=== PATIENT | female | born 1950 | race Caucasian/White ===

== ENCOUNTER 2018-06-10 08:00 | Outpatient (CLI) | payer MEDICARE | END 2018-06-10 09:00 | disposition home or self-care (01) | LOC: D.MAMMO 08:00 | DX: Z12.31 Encounter for screening mammogram for malignant neoplasm of breast (principal) ==

== ENCOUNTER → 2018-07-16 18:31 | Outpatient (CLI) | payer MEDICARE | END | disposition home or self-care (01) | LOC: D.MAMMO 14:30 | DX: R92.8 Other abnormal and inconclusive findings on diagnostic imaging of breast (principal) ==

== ENCOUNTER → 2019-09-22 08:58 | Outpatient (CLI) | payer MEDICARE ==
--- NOTE | ~2019-09-22 | ST ---
PATIENT:JOSE RAMON LUNSFORD MEDICAL RECORD: [id number] SEX: F LOCATION:[facility] ORDER #: ADMISSION DATE: 09/22/19 AGE OF PATIENT: 68 REFERRING PHYSICIAN: INTERPRETING PHYSICIAN: MARYLIN REIS MD DATE OF SERVICE: 09/22/2019 INDICATION: Angina, abnormal ECG. She was exercised on standard Lexiscan protocol with 33 mCi of sestamibi injected at peak stress, 11 mCi used previously for rest images. FINDINGS: Gated SPECT reveals a decreased ejection fraction at 47% with good wall motion and thickening and brightening throughout all segments. SPECT imaging Cardiolite was used as myocardial perfusion agent. There is reversibility inferiorly and apically. This includes the basal, mid, apical inferior segments as well as the apex itself. The degree of reversibility is moderate. The amount of myocardium involved is moderate. OVERALL IMPRESSION: This is an intermediate risk abnormal nuclear stress test, reversibility throughout the inferior and apical segment suggestive of hemodynamically significant coronary artery disease. TRANSINT:[id number] Voice Confirmation ID: [id number] DOCUMENT ID: [id number] MARYLIN REIS MD CC: LYNDSAY EDMONDS MD [id number] DICTATION DATE: 09/23/19 1150 CASUALTY INSURANCE CLAIM ADJUSTER: 09/24/19 0018 DEP CLI 09/22/19 [facility] [address] [id number]
--- NOTE | ~2019-09-22 | EC ---
PATIENT:JOSE RAMON LUNSFORD DATE OF SERVICE: 09/22/19 SEX: F MEDICAL RECORD: [id number] DATE OF : 50 LOCATION:[facility] AGE OF PATIENT: 68 ADMISSION DATE: 09/22/19 REFERRING PHYSICIAN: INTERPRETING PHYSICIAN: MICHAEL POLO MD ECHOCARDIOGRAM REPORT ECHO CHARGES 4 ECHO COMPLETE Date: 09/22/19 CLINICAL DIAGNOSIS: CP/ANGINA/ABNORMAL EKG/MURMUR ECHOCARDIOGRAPHIC MEASUREMENTS (adult normal given) AC root (d.<3.7cm) 3.0 cm LV Septum d (<1.2 cm> 1.1 cm Valve Excursion 2.0 cm LV Septum (systole) 1.5 cm Left Atria (s.<4.0cm> 5.1 cm LVPW d(<1.2cm) 1.2 cm RV (d.<2.3cm) 2.8 cm LVPW (sytole) 1.7 cm LV diastole(<5.6CM) 5.4 cm MV E-F(>70mm/sec) cm LV systole 4.0 cm LVOT Diameter 2.0 cm MV exc.(>10mm) cm Est.ejection fraction (50-75%) % DOPPLER: LVIT cm/sec A 100 cm/sec E 81.0 cm/sec LA cm/sec RVSP 34.3 mmHg LVOT 77.0 cm/sec AOP1/2T m/s Asc. Ao 122 cm/sec RVOT 55.0 cm/sec RA cm/sec PA 82.0 cm/sec AV Gradient Peak 6.0 mmHg AV Mean 3.1 mmHg AV Area 2.1 cm MV Gradient Peak 5.0 mmHg MV Mean 2.0 mmHg MV Area cm COMMENTS: OP - HC Rn Long Term Care: 1 TIM [facility] Pressroom Supervisor: 2 Dr. Brooks TAPE# PACS Pericardial Effusion N DATE OF SERVICE: Adequate 2D, color flow imaging, spectral Doppler, and M-Mode. Borderline LVH. LV internal dimensions are normal. LV is globally diffusely hypokinetic with reduced EF, estimated EF 30% to 35%. Aortic valve sclerosed without evidence of stenosis by Doppler interrogation. Left atrium is dilated at 5.1 cm. Mitral valve shows no prolapse. Moderate MR. Right-sided chambers are grossly normal. Mild TR. ECHOCARDIOGRAM REPORT [id number] JOSE RAMON LUNSFORD TRANSINT:[id number] Voice Confirmation ID: [id number] DOCUMENT ID: [id number] MICHAEL POLO MD CC: [id number] DICTATION DATE: 09/22/191410 FENCE MAKING MACHINE OPERATOR: 09/22/19 2229 [facility] [address] [id number]
== END | disposition home or self-care (01) ==
LOC: D.HCCECHO 08:58
PROVIDERS: ATTEND Internal Medicine Interventional Cardiology
DX: R01.1 Cardiac murmur, unspecified (principal)

== ENCOUNTER 2019-10-07 06:59 | Outpatient (CLI) | payer MEDICARE ==
[~2019-10-07] VITALS: Ht 165.1 cm; Wt 79.5 kg
--- NOTE | ~2019-10-07 | HEMODYNAMI ---
PATIENT:JOSE RAMON LUNSFORD MEDICAL RECORD: [id number] : 50 LOCATION:[facility] ADMISSION DATE: 10/07/19 Generatedon:10/07/201910:16 Patient name: JOSE RAMON LUNSFORD Patient #: [id number] SSN: : 1950 Date of study: 10/07/2019 Page: Of Hemodynamic Procedure Report Patient Data Patient Demographics Procedure consent was obtained First Name: JOSE RAMON Gender: Female Last Name: ISATU : 1950 Patient #: [id number] Age: 68 year(s) Race: Unknown Additional ID: [id number] Contact details Address: [address] [place] [address] State: [place] City: [facility] Zip code: [address] Past Medical History Allergies: No known allergies Admission Admission Data Admission Date: 10/07/2019 Admission Time: 6:59 Lab Results Lab Result Date: 10/07/2019 Lab Result Time: 0:00 Biochemistry Name Units Result Min Max BUN mg/dl 16 --(---*)-- 7 18 Creatinine mg/dl 0.7 --(*---)-- 0.6 1.3 eGFR ml/min 88.32743 -*(----)-- 90 120 NONAFRICAN CBC Name Units Result Min Max Hematocrit % 42.2 --(*---)-- 42 54 Hemoglobin g/dl 13.6 --(*---)-- 13.5 17.5 Procedure Procedure Types Cath Procedure Diagnostic Procedure LHC LHC w/Coronaries Sedation Charges Moderate Sedation up to 15 minutes Procedure Description Procedure Date Procedure Date: 10/07/2019 Procedure Start Time: 10:02 Procedure End Time: 10:13 Procedure Staff Name Function Jose Stanford MD Performing Physician Bailey Marquez RT Scrub Ly Calderon RN Nurse Birdie Roth RT Monitor Magdalena Hare RT Personal Development Educator Procedure Data Cath Procedure Fluoroscopy Diagnostic fluoroscopy Total fluoroscopy Time: 1.7 time: 1.7 min min Diagnostic fluoroscopy Total fluoroscopy dose: 291 dose: 291 mGy mGy Contrast Material Contrast Material Type Amount (ml) Isovue 300 69 Entry Location Entry Primary Successful Side Size Upsize Upsize Entry Closure Florentino ccessful Closure Location (Fr) 1 (Fr) 2 (Fr) Remarks Device Remarks Radial Right 6 Fr Mechanical artery Short Compression Estimated blood loss: 5 ml Diagnostic catheters Device Type Used For End Catheter Placement DIAGNOSTIC Hawkins 110cm 5 Procedure Fr catheter ([id number]) DIAGNOSTIC Pigtail 5Fr Procedure catheter ([id number]) Procedure Complications No complications Procedure Medications Medication Administration Route Dosage 0.9% NaCl I.V. 100 ml/hr Oxygen etCO2 Nasal cannula 2 l/min Lidocaine 2% added to field 20 Heparin Flush Bag added to field 2 bags (1000units/500ml NS) Radial Cocktail added to field 1 syringe (Verapamil 2mg/Nitro 400mcg/Heparin 1500units) Versed I.V. 2 mg Fentanyl I.V. 50 mcg Versed I.V. 2 mg Fentanyl I.V. 50 mcg Hemodynamics Rest HGB: 13.6 (g/dl) Heart Rate: 71 (bpm) Pressure Samples Time Site Value (mmHg) Purpose Heart Use Rate(bpm) 10:03 LV 70/8,38 Snapshot 91 Gradients Valve Time Site Site Mean SEP/DFP Peak To Heart Use 1 2 (mmHg) (sec/min) Peak Rate (mmHg) (bpm) Aortic 10:04 LV AO 51 Snapshots Pre Cath Intra NCS Post Cath Vital Signs Time Heart Resp SPO2 etCO2 NIBP (mmHg) Rhythm Pain Sedation Rate (ipm) (%) (mmHg) Status Level (bpm) 9:43:04 84 16 97 22 129/92(118) NSR 0 (11) 10(A) , No pain 9:47:21 85 15 100 25.6 129/84(112) NSR 0 (11) 10(A) , No pain 9:51:36 81 20 95 28.6 118/79(99) NSR 0 (11) 10(A) , No pain 9:55:49 76 12 97 41.5 115/74(100) NSR 0 (11) 10(A) , No pain 9:59:58 88 15 96 32.8 115/76(98) NSR 0 (11) 10(A) , No pain 10:04:20 84 16 96 31 111/45(87) NSR 0 (11) 10(A) , No pain 10:08:35 88 17 96 43.7 110/61(88) NSR 0 (11) 10(A) , No pain 10:12:51 98 44.5 113/67(84) NSR 0 (11) 10(A) , No pain Medications Time Medication Route Dose Verified Delivered Reason Notes E ffectiveness by by 9:46:43 0.9% NaCl I.V. 100 Jose Ly used for ml/hr Hien K[facility] procedure MD RAMIREZ 9:46:51 Oxygen etCO2 2 l/min Jose Ly used for Nasal [facility] procedure cannula MD RAMIREZ 9:46:56 Lidocaine 2% added 20ml Jose Garcia for local to vial [facility] anesthetic field MD MACARIO 9:47:00 Heparin Flush added 2 bags Jose Garcia used for Bag to [facility] procedure (1000units/500ml field MD MACARIO NS) 9:47:28 Radial Cocktail added 1 Jose Jose used for ([facility] field MD MACARIO 400mcg/Heparin 1500units) 9:59:08 Versed I.V. 2 mg Jose Ly for [facility] Calderon sedation MD RAMIREZ 9:59:13 Fentanyl I.V. 50 mcg Jose Ly for [facility] Calderon sedation MD RAMIREZ 10:07:04 Versed I.V. 2 mg Jose Ly for [facility] Calderon sedation MD RAMIREZ 10:07:08 Fentanyl I.V. 50 mcg Jose Ly for [facility] Calderon sedation MD RAMIREZmedical equipment repairer Log Time Note 8:23:11 Informed consent obtained and on chart 8:28:29 Procedure Status Elective Heart Cath (OP). 8:28:31 Time tracking: Regular hours (M-F 7:00 - 5:00) 8:28:33 Plan of Care:Hemodynamics will remain stable., Cardiac rhythm will remain stable., Comfort level will be maintained., Respiratory function will remain adequate., Patient/ family verbilizes understanding of procedure., Procedure tolerated without complication., Recovers from procedure without complications.. 8:42:07 H&P Date Dictated: 09/10/2019 Within 30 days and on chart., H&P Addendum completed by physician on day of procedure. (MUST COMPLETE FOR ALL OUTPATIENTS). 8:42:36 Patient allergic to No known allergies 8:43:35 Lab Result : BUN 16 mg/dl 8:43:35 Lab Result : Creatinine 0.7 mg/dl 8:43:35 Lab Result : eGFR NONAFRICAN 88.92659 ml/min 8:43:35 Lab Result : Hemoglobin 13.6 g/dl 8:43:35 Lab Result : Hematocrit 42.2 % 8:45:24 Risk of Mortality: .1 8:45:26 Risk of blood transfusion: .3 8:45:28 Risk of SACHA: .2 9:25:18 Magdalena Hare RT(R) sent for patient. Start room use. 9:34:30 Patient received from Pre/Post Procedure Room to CCL 1 Alert and oriented. Tansferred to table in Supine position. 9:34:32 Warm blankets applied, and fallon hugger turned on for patient comfort. 9:34:33 Correct patient and procedure confirmed by team. 9:34:35 ECG and BP/O2 sat monitors applied to patient. 9:41:59 Vital chart was started 9:42:18 Full Disclosure recording started 9:42:24 Rhythm: sinus rhythm 9:42:27 Baseline sample Acquired. 9:42:42 Pre-procedure instructions explained to patient. 9:42:45 Pre-op teaching completed and patient verbalized understanding. 9:42:48 Family AVAILABLE WITH PHONE CALL 9:43:06 Patient NPO since Midnight. 9:44:29 Is the patient allergic to Iodine/contrast media? No. 9:44:46 Is patient on blood thinner?No 9:44:49 Patient diabetic? No. 9:46:17 Previous problem with sedation/anesthesia? No ? 9:46:21 Snore? Yes 9:46:22 Sleep apnea? No 9:46:23 Deviated septum? No 9:46:28 Opens mouth fully? No 9:46:28 Sticks out tongue? Yes 9:46:30 Airway obstruction? No ? 9:46:33 Dentures? No ? 9:46:37 Pre procedure: right dorsailis pedis pulse 1+ Palpable, but thready & weak; easily obliterated 9:46:39 Modified Blaine's test Ulnar < 7 seconds 9:46:40 Patient pain scale 0/10 ?. 9:46:43 0.9% NaCl 100 ml/hr I.V. was administered by Ly Calderon RN; used for procedure; Verbal order read back and verified. 9:46:51 Oxygen 2 l/min etCO2 Nasal cannula was administered by Ly Calderon RN; used for procedure; Verbal order read back and verified. 9:46:56 Lidocaine 2% 20ml vial added to field was administered by Jose Stanford MD; for local anesthetic; Verbal order read back and verified. 9:47:00 Heparin Flush Bag (1000units/500ml NS) 2 bags added to field was administered by Jose Stanford MD; used for procedure; Verbal order read back and verified. 9:47:05 IV patent on arrival in right antecubital with 0.9% NaCl at O. 9:47:13 Lab results completed and on chart. 9:47:22 Right Radial & Right Groin area was prepped with chlora-prep and draped in sterile fashion 9:47:28 Radial Cocktail (Verapamil 2mg/Nitro 400mcg/Heparin 1500units) 1 syringe added to field was administered by Jose Stanford MD; used for procedure; Verbal order read back and verified. 9:47:34 Alarms reviewed by R. N. 9:47:55 Sharps counted by scrub and verified by R.N. 9:47:59 Use device set Radial Dx or PCI 9:48:01 ACIST Syringe (85874) opened to sterile field. 9:48:02 Medline Cath Pack ([id number]) opened to sterile field. 9:48:02 Bag Decanter () opened to sterile field. 9:48:03 ACIST Hand Control (02985) opened to sterile field. 9:48:03 ACIST Manifold (10218) opened to sterile field. 9:48:03 Tegaderm 4 x 4 (1626W) opened to sterile field. 9:48:05 MBrace Wrist Support ([id number]) opened to sterile field. 9:48:10 EMERALD Guide Wire (809-115) opened to sterile field. 9:48:11 SHEATH 6FR RAIN (3511190) opened to sterile field. 9:58:09 --------ALL STOP TIME OUT------ 9:58:09 Final Timeout: patient, procedure, and site verified with staff and physician. All members of the team are in agreement. 9:58:24 Right Radial & Right Groin site verified by team. 9:58:35 Fire Safety Assessment: A--An alcohol-based skin anteseptic being used preoperatively., C--Open oxygen or nitrous oxide is being used., D--An ESU, laser, or fiber-optic light is being used. 9:58:38 Physical assessment completed. ASA score P 2 - A patient with mild systemic disease as per Jose Stanford MD. 9:59:08 Versed 2 mg I.V. was administered by Ly Calderon RN; for sedation; Verbal order read back and verified. 9:59:13 Fentanyl 50 mcg I.V. was administered by Ly Calderon RN; for sedation; Verbal order read back and verified. 9:59:38 2) 60-89 Mildly reduced kidney function, and other findings (as for stage 1) point to kidney disease. 9:59:42 Maximum allowable contrast dose (3.7 X eGFR X 0.75)244 ml. 9:59:45 Sedation plan: IV Moderate Sedation Medication:Versed, Fentanyl 9:59:51 Zero performed for pressure channel P1 10:00:30 Procedure started. 10:02:02 Local anesthetic to right radial artery with Lidocaine 2% by Jose Stanford MD.INITIAL ACCESS ONLY 10:03:14 A 6 Fr Short sheath was inserted into the Right Radial artery 10:03:24 A DIAGNOSTIC Hawkins 110cm 5 Fr catheter (113284) was advanced over the wire and used for Procedure. 10:03:41 LV gram done using VO 10:03:53 LV hemodynamics recorded. 10:03:57 Injector settings: Ml/sec: 5, Volume: 15, 10:04:23 EF : 40 % 10:05:12 LCA angiography performed. 10:06:04 RCA angiography performed. 10:06:39 Catheter exchanged over wire. 10:06:53 A DIAGNOSTIC Pigtail 5Fr catheter ([id number]) was advanced over the wire and used for Procedure. 10:07:04 Versed 2 mg I.V. was administered by Ly Calderon RN; for sedation; Verbal order read back and verified. 10:07:08 Fentanyl 50 mcg I.V. was administered by Ly Calderon RN; for sedation; Verbal order read back and verified. 10:08:22 Injector settings: Ml/sec: 10, Volume: 20, 10:08:49 EF : 30 % 10:08:50 Catheter removed. 10:09:08 ZEPHYR REGULAR TR BAND (640139) opened to sterile field. 10:09:11 Procedure ended.(Physican Out) 10:10:35 Sheath removed intact; hemostasis achieved with Mechanical Compression to the Right Radial artery. 10:10:47 Fluoroscopy time 01.70 minutes. 10:10:53 Fluoroscopy dose: 291 mGy 10:10:53 Flurop Dose total: 291 10::08 Dose Area Product 10637 mGy/cm. 10:11:35 Contrast amount:Isovue 300 69ml. 10:11:37 Maximum allowable dose exceeded? No. 10:11:38 Sharps counted by scrub and verified by R.N. 10:11:42 Hammond band inflated with 10cc of air. 10:11:44 Insertion/operative site no bleeding no hematoma. 10:11:48 Post-procedure physical assessment completed. ASA score P 2 - A patient with mild systemic disease as per Jose Stanford MD. 10:11:53 Post procedure rhythm: sinus rhythm 10:11:58 Estimated blood loss: 5 ml 10:12:00 Post procedure instruction explained to patient.Patient verbalizes understanding. 10:12:00 Patient needs reinforcement of post procedure teaching. 10:13:08 Procedure type changed to Cath procedure, Diagnostic procedure, LHC, [facility] w/Coronaries, Sedation Charges, Moderate Sedation up to 15 minutes 10:13:37 Procedure and supply charges have been captured, reviewed, submitted and are correct. 10:13:46 Procedure Complication : No complications 10:13:47 Vital chart was stopped 10:13:49 [facility] Findings: mild to moderate CAD (<70%) 10:13:51 Operative report dictated upon procedure completion. 10:13:51 See physician's report for complete and final results. 10:13:53 Report given to Pre/Post Procedure Room. 10:13:56 Patient transfered to Pre/Post Procedure Room with Bed. 10:13:58 Procedure ended. 10:13:58 Full Disclosure recording stopped 10:14:13 End room use (Document Last) Device Usage Item Name Manufacture Quantity Catalog Hospital Part Current Minima l Lot# / Number Charge Number Stock Stock Serial# Code ACIST Acist 1 99184 [id number] [id number] 20 Syringe Medical (17120) Systems Inc Medline Medline 1 [id number] 923692 95842 840476 5 Cath Pack ([id number]) Bag Microtek 1 2001S 099787 69087 271143 5 Decanter Medical Inc. (2001S) ACIST Hand Acist 1 78736 029073 602941 130609 5 Control Medical (64860) Systems Inc ACIST Acist 1 65700 784881 616407 782079 5 Manifold Medical (44526) Systems Inc Tegaderm 4 3M 1 1626W 353728 749057 153738 5 x 4 (1626W) MBrace Advanced 1 140-0250-00 776303 83225 300090 5 Wrist Vascular Support Dynamics (108138249) EMERALD Cardinal 1 502-455 894388 992067 976016 5 Guide Wire Health (502455) SHEATH 6FR Cardinal 1 8235908 621991 0325164 228412 5 [facility] (4934252) DIAGNOSTIC Terumo 1 405013 892385 151882 063527 5 Hawkins 110cm 5 Fr catheter (622116) DIAGNOSTIC Cardinal 1 483601V 374947 952504 107561 5 Pigtail 5Fr Health catheter (857456P) ZEPHYR Cardinal 1 749994 944479 6895351 564028 5 REGULAR TR Health BAND (527028) Signature Audit [place] Stage Time Signature Unsigned Intra-Procedure 10/07/2019 Birdie Roth 10:15:55 AM RT(R) Intra-Procedure 10/07/2019 Ly Calderon 10:16:24 AM RN Intra-Procedure 10/07/2019 Jose Whyte 10:16:42 AM Abner MACARIO [facility] [address] [place] [address]
[2019-10-07] MEDS ORDERED: SYNTHROID25 MCG PO (07:26)
[2019-10-07] MEDS ORDERED: BAYER CHEWABLE81 MG PO (07:26)
[2019-10-07] MEDS ORDERED: CLARITIN 10 MG10 MG PO (07:26)
[2019-10-07 07:45] VITALS: BP 133/88; Ht 165.1 cm; Wt 79.5 kg
[2019-10-07 07:58] LABS: BASOPHILS 0.7 % (0-2); EOSINOPHILS 1.1 % (0-7); HEMATOCRIT 42.2 % (36.0-48.0); HEMOGLOBIN 13.6 g/dL (12-16); IMMATURE GRANULOCYTES 0.2 % (0-5); LYMPHOCYTES 26.6 % (15-50); MCH 31.4 pg (26.0-34.0); MCHC 32.2 g/dL (31.0-37.0); MCV 97.5 fL (80.0-100.0); MEAN PLATELET VOLUME 10.7 fL (7.4-10.4); MONOCYTES 7.6 % (2-11); NEUTROPHILS 63.8 % (40-80); PLATELET COUNT 253 10x3/uL (130-400); RBC 4.33 10x6/uL (4.00-5.40); RDW 12.2 % (11.5-14.5); WBC 8.2 10x3/uL (4.8-10.8)
[2019-10-07 08:12] LABS: ALT (SGPT) 21 U/L (10-68); CALC OSMOLALITY 281 mosm/kg (275-300); CALCIUM 8.8 mg/dL (8.5-10.1); CARBON DIOXIDE 27.2 mmol/L (21.0-32.0); CHLORIDE - SERUM 106 mmol/L (98-107); CHOL - HDL RATIO 2.6 ratio (2.3-4.1); CHOLESTEROL, TOTAL 216 mg/dL (0-200); CREATININE - SERUM 0.7 mg/dL (0.6-1.3); GLUCOSE 94 mg/dL (74-106); HDL CHOLESTEROL 84 mg/dL (32-96); LDL CHOLESTEROL 122 mg/dL (0-100); LDL-HDL RATIO 1.5 ratio (1.5-3.5); POTASSIUM - SERUM 4.3 mmol/L (3.5-5.1); SODIUM 141 mmol/L (136-145); TRIGLYCERIDE 54 mg/dL (30-200); UREA NITROGEN 16 mg/dL (7-18); eGFR NON AFRICAN AMERICAN 88 mL/min (90-120)
--- NOTE | 2019-10-07 10:20 | NUR ---
PT ARRIVED BY STRETCHER. PLACED ON MONITORS. ASSESSMENT COMPLETED. VSS AT THIS TIME.
[2019-10-07] MEDS ORDERED: ALDACTONE25 MG PO (10:26)
--- NOTE | 2019-10-07 10:35 | NUR ---
RIGHT WRIST Z BAND IN PLACE. NO BLEEDING/HEMATOMA NOTED. CALL LIGHT WITHIN REACH. PT RESTING COMFORTABLY. VSS.
--- NOTE | 2019-10-07 11:05 | NUR ---
PT RESTING COMFORTABLY. VSS. RIGHT WRIST Z BAND IN PLACE. NO BLEEDING/HEMATOMA NOTED.
--- NOTE | 2019-10-07 11:15 | NUR ---
1cc OF AIR REMOVED FROM Z BAND. NO BLEEDING/HEMATOMA NOTED. VSS. PT SET UP WITH SANDWICH TRAY AND DRINK AT THIS TIME. VSS.
--- NOTE | 2019-10-07 11:30 | NUR ---
2cc OF AIR REMOVED FROM Z BAND. NO BLEEDING/HEMATOMA NOTED. CALL LIGHT WITHIN REACH. VSS. NO NEEDS AT THIS TIME.
--- NOTE | 2019-10-07 11:45 | NUR ---
4cc OF AIR REMOVED FROM Z BAND. NO BLEEDING/HEMATOMA NOTED. VSS. PT TOLERATING WELL. DENIES NAUSEA/PAIN AT THIS TIME.
--- NOTE | 2019-10-07 12:05 | NUR ---
PIV D/C'D WITH CATH TIP INTACT. TOLERATED WELL. VSS. RIGHT WRIST Z BAND REMOVED AND DRESSING APPLIED. NO BLEEDING/HEMATOMA NOTED. PT INSTRUCTED TO GET UP AND DRESSED AT THIS TIME.
--- NOTE | 2019-10-07 12:15 | NUR ---
PT AMBULATED TO RESTROOM. VOIDED WITHOUT DIFFICULTY. STEADY GAIT NOTED.
--- NOTE | 2019-10-07 12:20 | NUR ---
DISCUSSED DISCHARGE INSTRUCTIONS WITH PT. SHE VOICED UNDERSTANDING.
--- NOTE | 2019-10-07 12:30 | NUR ---
PT TAKEN DOWN TO VEHICLE BY WHEELCHAIR. NO S/S OF DISTRESS NOTED. ALL BELONGINGS AND PAPERWORK IN HAND.
--- NOTE | 2019-10-08 08:47 | OP ---
PATIENT NAME: JOSE RAMON LUNSFORD MEDICAL RECORD: [id number] :50 LOCATION:[facility] ADMISSION DATE: SURGEON: MICHAEL POLO MD DATE OF OPERATION: PROCEDURE: Left heart catheterization, selective coronary angiography, right radial approach. CATHETERS: Radial sheath, [place] catheter as well as pigtail catheter. The procedure was well tolerated. The patient returned to the dias, sheath removed. TR band was placed. FINDINGS: Left ventriculography, global hypokinesis with reduced EF, estimated EF 30%. CORONARY ANATOMY: LEFT MAIN: Left main is free of disease. LAD: Free of disease in the diagonal system. CIRCUMFLEX: Free of disease in the marginal system. RIGHT CORONARY ARTERY: Dominant artery, gives rises to PDA,, free of disease. IMPRESSION: Nonischemic cardiomyopathy. We will begin Aldactone. Consider addition of TL, ARB, beta blockade as an outpatient when seen back in the office. TRANSINT:[id number] Voice Confirmation ID: [id number] DOCUMENT ID: [id number] MICHAEL POLO MD at 0847 CC: [id number] DICTATION DATE: 10/07/19 1019 PALAEONTOLOGIST: 10/07/19 1125 DEP CLI 10/07/19 [id number] [place] [address]
== END 2019-10-07 12:30 | disposition home or self-care (01) ==
LOC: D.CATH 06:59
PROVIDERS: ATTEND Internal Medicine Interventional Cardiology
DX: R00.2 Palpitations (principal); I20.9 Angina pectoris, unspecified; R94.31 Abnormal electrocardiogram [ECG] [EKG]; R01.1 Cardiac murmur, unspecified

== ENCOUNTER → 2020-02-01 12:35 | Outpatient (CLI) | payer MEDICARE ==
[2019-10-07 07:45] VITALS: BMI 29.1
--- NOTE | ~2020-02-01 | EC ---
PATIENT:JOSE RAMON LUNSFORD DATE OF SERVICE: 02/01/20 SEX: M MEDICAL RECORD: [id number] DATE OF : 50 [facility] AGE OF PATIENT: 69 ADMISSION DATE: 02/01/20 REFERRING PHYSICIAN: INTERPRETING PHYSICIAN: MICHAEL POLO MD ECHOCARDIOGRAM REPORT ECHO CHARGES 4 ECHO COMPLETE Date: 02/01/20 CLINICAL DIAGNOSIS: CARDIOMYOPATHY/ ASSESS EF ECHOCARDIOGRAPHIC MEASUREMENTS (adult normal given) AC root (d.<3.7cm) 3.3 cm LV Septum d (<1.2 cm> 1.1 cm Valve Excursion 2.0 cm LV Septum (systole) 1.3 cm Left Atria (s.<4.0cm> 4.2 cm LVPW d(<1.2cm) 1.4 cm RV (d.<2.3cm) 3.8 cm LVPW (sytole) 1.6 cm LV diastole(<5.6CM) 5.1 cm MV E-F(>70mm/sec) cm LV systole 3.8 cm LVOT Diameter 2.1 cm MV exc.(>10mm) 0.80 cm Est.ejection fraction (50-75%) % DOPPLER: LVIT cm/sec A 102.0cm/sec E 114.0 cm/sec LA cm/sec RVSP 30 mmHg LVOT 84 cm/sec AOP1/2T m/s Asc. Ao 115 cm/sec RVOT 78 cm/sec RA cm/sec PA 86 cm/sec AV Gradient Peak 5.32 mmHg AV Mean 3.11 mmHg AV Area 2.7 cm MV Gradient Peak 5.74 mmHg MV Mean 2.35 mmHg MV Area cm COMMENTS: General Foreman: 2 FRANNIE DIXON Weekend Receptionist: 3 Dr. Ramsey TAPE# PACS Pericardial Effusion N DATE OF SERVICE: Adequate 2D, color flow imaging, spectral Doppler and M-mode. Borderline LVH. LV internal dimension is normal. LV appears to be mildly globally hypo with EF lower limits of normal/mildly reduced. Estimated EF 45% to 50%. Aortic valve is tricuspid. No evidence of stenosis by Doppler interrogation. Left atrium is minimally dilated at 4.2 cm. Mitral valve shows no prolapse. Mild plus MR. Right-sided chambers are grossly normal. Mild TR. ECHOCARDIOGRAM REPORT [id number] JOSE RAMON LUNSFORD TRANSINT:[id number] Voice Confirmation ID: [id number] DOCUMENT ID: [id number] MICHAEL POLO MD CC: [id number] DICTATION DATE: 02/02/20 1308 SUPERVISOR ENGINE ASSEMBLY: 02/02/202199 DEP CLI 02/01/20 [facility] [address] [id number]
[~2020-02-01 12:35] MED LIST: ALDACTONE25 MG PO; BAYER CHEWABLE81 MG PO; CLARITIN 10 MG10 MG PO; SYNTHROID25 MCG PO
== END | disposition home or self-care (01) ==
LOC: D.HCCECHO 01-26 13:30 → EDSEX 13:00 → D.HCCECHO 13:00
PROVIDERS: ATTEND Internal Medicine Interventional Cardiology
DX: I42.9 Cardiomyopathy, unspecified (principal)

== ENCOUNTER 2020-11-02 18:30 | Outpatient (CLI) | payer MEDICARE ==
[2019-10-07 07:45] VITALS: BMI 29.1
== END 2020-11-02 23:59 | disposition home or self-care (01) ==
LOC: D.MAMMO 18:30 → EDSEX 11-03 14:45
PROVIDERS: ATTEND Family Medicine
DX: Z12.31 Encounter for screening mammogram for malignant neoplasm of breast (principal)